=== PATIENT | male | born 1950 | race Caucasian/White ===

== ENCOUNTER 2017-06-25 19:42 | Emergency (ER) | payer OTHER ==
[~2017-06-25] VITALS: Ht 167.6 cm; Wt 60.0 kg
[2017-06-25 19:47] VITALS: BP 76/51; PULSE 92; RESP 16; TEMP 98; O2SAT 98
[2017-06-25] MEDS ORDERED: ALBU0.08 NEB (19:56)
[2017-06-25] MEDS ORDERED: methylPREDNISolone SOD SUCC 125 MG/2 ML VIAL IV PUSH ONE (20:00)
[2017-06-25] MEDS ORDERED: MORPHINE SULFATE 2 MG/ML INJ IV PUSH ONE (20:00)
[2017-06-25] MEDS ORDERED: SODIUM CHLOR 0.9% 1000 ML INJ 1,000 ML IV ONE (20:00)
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
[2017-06-25] MEDS: RESP: ALBUTEROL 2.5 MG/IPRATROPIUM 0.5 MG NEB (SCH) INH ×3 (20:15→22:32)
[2017-06-25] MEDS ORDERED: SODIUM CHLORIDE 0.9% FLUSH 10 ML FLUSH IVF PRN (20:15)
[2017-06-25 20:25] VITALS: O2SAT 98
[2017-06-25 20:48] LABS: BASOPHIL # 0.1 TH/MM3 (0-0.2); BASOPHIL % 0.5 % (0.0-2.0); EOSINOPHIL % 0.2 % (0.0-4.0); HEMATOCRIT 47.6 % (39.0-51.0); HEMO FLAGS DIFF FINAL; LYMPH % 9.2 % (9.0-44.0); LYMPHOCYTE # 1.5 TH/MM3 (1.0-4.8); MEAN CELL VOLUME 87.7 FL (80.0-100.0); MEAN CORPUSCULAR HEMOGLOBIN 30.6 PG (27.0-34.0); MEAN CORPUSCULAR HGB CONC 34.9 % (32.0-36.0); MONO % 5.4 % (0.0-8.0); NEUT % 84.7 % (16.0-70.0); PLATELET COUNT 211 TH/MM3 (150-450); RED BLOOD COUNT 5.43 MIL/MM3 (4.50-5.90); RED CELL DISTRIBUTION WIDTH 14.6 % (11.6-17.2); WHITE BLOOD COUNT 16.5 TH/MM3 (4.0-11.0)
[2017-06-25] MEDS ORDERED: IOHEXOL 350 MG/ML 10 ML VIAL (for RAD DIAG) IVCONTRAST ONE (21:00)
[2017-06-25 21:02] LABS: APTT (PATIENT) 25.2 SEC (24.3-30.1)
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
[2017-06-25 21:30] LABS: I-STAT POTASSIUM 5.3 MMOL/L (3.5-4.9)
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
[2017-06-25] MEDS ORDERED: MORPHINE SULFATE 4 MG/ML INJ IV PUSH ONE (22:00)
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
[2017-06-25] MEDS ORDERED: RESP: ALBUTEROL 2.5 MG/IPRATROPIUM 0.5 MG NEB (SCH) NEB ONE (22:30)
[2017-06-25] MEDS ORDERED: MEDR4PAK PO (22:42)
[2017-06-25] MEDS ORDERED: ZOFR4TAB3 SL (22:42)
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
[2017-06-25 23:16] LABS: POTASSIUM 4.8 MEQ/L (3.5-5.1)
--- NOTE | 2017-06-25 23:46 | RADRPT ---
EXAM DATE/TIME: 06/25/2017 23:18 [facility] COMPARISON: CHEST SINGLE AP, June 25, 2017, 20:28. CT THORAX W CONTRAST, June 25, 2017, 20:50. INDICATIONS : Evaluate for pneumothorax. MEDICAL HISTORY : None. SURGICAL HISTORY : None. ENCOUNTER: Subsequent ACUITY: 1 day PAIN SCORE: 5/10 LOCATION: Left upper chest FINDINGS: No infiltrate, effusion or pneumothorax. There is mild emphysema. Heart size stable, normal. Old, healed right rib fractures are again noted. CONCLUSION: No pneumothorax or other acute cardiopulmonary disease demonstrated. Tobi Block MD on June 25, 2017 at 23:43 Board Certified Radiologist. This report was verified electronically.
--- NOTE | 2017-06-28 08:50 | EKG ---
Date Performed: 06/25/2017 Time Performed: 22:24:01 PTAGE: 66 years EKG: Sinus rhythm INDETERMINATE AXIS PATTERN CONSISTENT WITH PULMONARY DISEASE SEPTAL MYOCARDIAL INFARCTION ABNORMAL E CG PREVIOUS TRACING : 10/29/2014 16.16 DOCTOR: Fei Diaz Interpretating Date/Time 06/28/2017 08:48:20
== END 2017-06-26 00:51 | disposition home or self-care (01) ==
LOC: NEPC 19:42
DX: S42.018A Nondisplaced fracture of sternal end of left clavicle, initial encounter for closed fracture (principal); J44.9 Chronic obstructive pulmonary disease, unspecified; S43.102A Unspecified dislocation of left acromioclavicular joint, initial encounter; M25.522 Pain in left elbow; M25.552 Pain in left hip; M25.562 Pain in left knee; R94.31 Abnormal electrocardiogram [ECG] [EKG]; N20.0 Calculus of kidney; V03.10XA Pedestrian on foot injured in collision with car, pick-up truck or van in traffic accident, initial encounter
CPT/HCPCS: 70450; 71010; 71020; 71260; 72125; 73030; 73502; 74177; 82435; 82565; 82947; 84132; 84295; 84484; 84520; 85025; 85610; 85730; 86850; 86900; 86901; 93005; 94640; 94664; 96374; 96375; 96376; 99285; J2270; Q9967